=== PATIENT | male | born 1980 | race Caucasian/White ===

== ENCOUNTER → 2016-09-13 | Outpatient (CLI) | payer OTHER | LOC: KOH-I 14:56 | DX: M54.2 Cervicalgia (principal); M54.9 Dorsalgia, unspecified; M79.641 Pain in right hand | CPT/HCPCS: 72050; 72070; 72110; 73130 ==

== ENCOUNTER → 2016-11-12 | Outpatient (CLI) | payer OTHER | LOC: EMI 10-26 18:15 | DX: M54.5 Low back pain (principal); M51.36 Other intervertebral disc degeneration, lumbar region | CPT/HCPCS: 72148 ==